=== PATIENT | male | born 1975 | race Caucasian/White ===

== ENCOUNTER → 2024-09-19 | Outpatient (CLI) | payer OTHER, SELFPAY ==
[2024-09-19 15:48] LABS: AST(SGOT) 27 U/L (<=37); Alanine Aminotransfer ALT/SGPT 41 U/L (<=46); Albumin, Serum 4.3 g/dL (3.5-5.0); Alkaline Phosphatase 109 U/L (40-129); Anion Gap 12 (5-15); BUN 23 mg/dL (4-19); BUN/Creat Ratio 17.1 RATIO (10-20); Calcium,Total 9.7 mg/dL (7.6-11.0); Carbon Dioxide 24.2 mmol/L (21.0-32.0); Chloride 102 mmol/L (98-108); Cholesterol 199 mg/dL (<=200); Globulin 3.1 g/dL (2.2-4.2); Glucose 101 mg/dL (70-99); Low Density Lipoprotein Calc. 104 mg/dL; Potassium 4.3 mmol/L (3.3-5.1); Triglycerides 186 mg/dL; Very Low Density Lipoprotein 37 mg/dL (5-40); cholesterol:hdl ratio screen 3.46
== END | disposition home or self-care (01) ==
LOC: MFPLAB 12:07
PROVIDERS: PCP Family Medicine; Visit Provider Family Medicine
DX: I10 Essential (primary) hypertension (principal)
CPT/HCPCS: 36415; 80053; 80061